=== PATIENT | female | born 1935 | race Caucasian/White ===

== ENCOUNTER → 2016-09-12 | Outpatient (CLI) | payer OTHER, BC ==
[~2016-09-12] MED LIST: ASPI325T39 PO; CALCTAB5 PO; CHOL100010 PO; ESCI10TA17 PO; LISI5TAB3 PO; MULT-190 PO; OMEG10007 PO; POLYSOL4 OPB; VTMB12UNK PO
--- NOTE | 2016-09-12 16:39 | MAMMOGRAPHY REPORT ---
BILATERAL DIGITAL SCREENING MAMMOGRAM WITH CAD: 09/12/2016 CLINICAL HISTORY: Routine screening. TECHNIQUE: Current study was also evaluated with a Computer Aided Detection (CAD) system. Bilatera l CC and MLO views were obtained. COMPARISON: Comparison is made to exams dated: 03/23/2015 mammogram, 03/22/2014 mammogram, 03/20/20 13 mammogram, 03/11/2012 mammogram, 09/10/2011 mammogram, and 03/07/2011 mammogram - [facility]. BREAST COMPOSITION: The tissue of both breasts is heterogeneously dense, which may obscure small ma sses. FINDINGS: No suspicious masses, calcifications, or areas of architectural distortion are noted in e ither breast. There has been no significant interval change compared to prior exams. Asymmetry in t he left medial posterior breast is stable. A cardiac device overlies the medial aspect of the left breast. Bilateral benign vascular calcifications are again noted. IMPRESSION: ACR BI-RADS CATEGORY 2: BENIGN There is no mammographic evidence of malignancy. A 1 year screening mammogram is recommended. The p atient will receive written notification of the results. Approximately 10% of breast cancers are not detected with mammography. A negative mammographic repor t should not delay biopsy if a clinically suggestive mass is present. Mariaelena Dodd M.D. /:09/12/2016 16:33:01 Machine Assembler For Puller Over: Brittnee Aguirre RT(R)(M), [facility] letter sent: Normal 1/2 BI-RADS Code: ACR BI-RADS Category 2: Benign
== END | disposition home or self-care (01) ==
LOC: C.MAMM 09:36
PROVIDERS: ATTEND Internal Medicine
DX: Z12.31 Encounter for screening mammogram for malignant neoplasm of breast (principal)

== ENCOUNTER → 2016-12-10 | Outpatient (CLI) | payer OTHER, BC ==
[2016-12-10 11:18] LABS: BASO % 0.5 %; BASO ABS # 0.03 K/uL (0-0.2); COMPLETE YES; EOS % 5.9 %; IG% 0.2 %; LYMPH % 28.6 %; LYMPH ABS # 1.61 K/uL (1.2-3.4); MEAN CELL VOLUME 96.4 fL (80-100); MEAN CORPUSCULAR HEMOGLOBIN 32.3 pg (25-34); MEAN CORPUSCULAR HGB CONC 33.5 g/dl (32-36); MEAN PLATELET VOLUME 9.7 fL (7.4-10.4); MONO % 11.2 %; NEUT % 53.6 %; PLATELET COUNT 181 K/uL (130-400); RED BLOOD COUNT 3.84 M/uL (4.2-5.4); WHITE BLOOD COUNT 5.63 K/uL (4.8-10.8)
[2016-12-10 11:48] LABS: ALB/GLOB RATIO 1.3 (0.9-2); ALT/SGPT 18 U/L (12-78); AST/SGOT 13 U/L (15-37); BLOOD UREA NITROGEN 16 mg/dl (7-18); BUN/CREATININE RATIO 25.9 (10-20); CARBON DIOXIDE 30 mmol/L (21-32); CHLORIDE 106 mmol/L (98-107); CREATININE 0.63 mg/dl (0.60-1.20); GLUCOSE 94 mg/dl (70-99); POTASSIUM 4.2 mmol/L (3.5-5.1); SODIUM 142 mmol/L (136-145)
[2016-12-10 11:58] LABS: ALKALINE PHOSPHATASE 88 U/L (45-117); CHOLESTEROL 208 mg/dl (0-200); CHOLESTEROL/HDL RATIO 3.9; HDL CHOLESTEROL 53 mg/dl; LDL CHOLESTEROL CALCULATED 132 mg/dl; TRIGLYCERIDES 116 mg/dl (0-150); VERY LOW DENSITY LIPOPROT CALC 23 mg/dl
== END | disposition home or self-care (01) ==
LOC: C.LABBC 08:20
PROVIDERS: ATTEND Internal Medicine
DX: I47.2 Ventricular tachycardia (principal)

== ENCOUNTER → 2017-07-02 | Outpatient (CLI) | payer OTHER, BC ==
--- NOTE | 2017-07-02 10:52 | DIAGNOSTIC IMAGING REPORT ---
HEAD WITHOUT CONTRAST (CT) CLINICAL HISTORY: 82 years-old Female presenting with W19.XXXA Fall in March, accidental, S09.90XA Head trauma. TECHNIQUE: Multidetector CT imaging of the head was performed without the use of intravenous contrast. IV contrast: None. A dose lowering technique was used consistent with the principles of ALARA (as low as reasonably achievable). COMPARISON: 01/26/2013. CT DOSE (mGy.cm): The estimated cumulative dose is 537.48 mGy.cm. FINDINGS: Chain Builder topogram: Unremarkable. Proportional ventricular and sulcal prominence, likely age-related parenchymal volume loss. Periventricular and subcortical white matter hypoattenuation, nonspecific but likely indicative of chronic small vessel ischemic change. Old lacunar infarct may be present in the subinsular white matter bilaterally, unchanged. No mass effect or midline shift. No hemorrhage or acute territorial infarct. No extra-axial fluid collection. Paranasal sinuses and mastoid air cells clear. Calvarium intact. IMPRESSION: 1. Chronic small vessel ischemic change. No acute intracranial abnormality. Electronically signed by: Uziel Moreland M.D. 07/02/2017 10:50 AM Dictated Date/Time: 07/02/2017 10:43 AM
== END | disposition home or self-care (01) ==
LOC: C.CTS 10:31
PROVIDERS: ATTEND Physician Assistant Medical
DX: S09.90XA Unspecified injury of head, initial encounter (principal); W19.XXXA Unspecified fall, initial encounter

== ENCOUNTER 2017-09-02 21:04 | Emergency (ER) | payer OTHER, BC ==
[~2017-09-02] VITALS: Ht 158.8 cm; Wt 64.1 kg
[2017-09-02 21:22] VITALS: TEMP 36.5; Ht 158.8 cm; Wt 64.1 kg
--- NOTE | 2017-09-02 22:31 | EMERGENCY ROOM VISIT NOTE ---
History Report prepared by Adrián: Vargas Espino Under the Supervision of: Dr. Devin Brooke M.D. First contact with patient: 22:35 Chief Complaint: KNEEPAIN Stated Complaint: LEFT KNEE PROBLEM History of Present Illness The patient is a 82 year old female who presents to the Emergency Room with complaints of excruciating worsening posterior left knee pain that began 3 days ago. The patient states that she was walking for 1.5 miles and locked her leg while she was cutting vegetables over the weekend. She states that walking worsens her pain. She states that she takes Aspirin. She denies taking Ibuprofen or Motrin. She normally follows with Dr. Menard. She denies chest pain, SOB, and abdominal pain. Source of History: patient Onset: 3 days ago Position: knee (left) Symptom Intensity: excruciating Timing: worsening Modifying Factors (Worsening): other (walking) Associated Symptoms: No chest pain, No SOB, No abdominal pain Review of Systems See HPI for pertinent positives & negatives. A total of 10 systems reviewed and were otherwise negative. Past Medical & Surgical Medical Problems: (1) Basal cell carcinoma (2) HTN (hypertension) Family History Cancer Diabetes mellitus Heart disease Hypertension Kidney disease Social History Smoking Status: Never Smoker Alcohol Use: occasionally Drug Use: none Marital Status: single Housing Status: lives alone Occupation Status: retired Current/Historical Medications Scheduled Aspirin (Aspirin Ec), 325 MG PO HS Calcium Carbonate-Vitamin D (Calcium + D), 1 TAB PO BID Cholecalciferol (D3 2000), 2,000 UNITS PO QAM Cyanocobalamin (Vitamin B-12), 500 MCG PO DAILY Escitalopram (Lexapro), 10 MG PO DAILY Fish Oil (Comstock-3), 1,200 MG PO DAILY Metoprolol Succinate (Toprol Xl), 37.5 MG PO DAILY Ocuvite Preservision (Ocuvite Preservision), 1 TAB PO BID Polyethylene Glycol-Propylene (Systane), 1 DROP OPB TID Scheduled PRN Triamcinolone Acet (Triamcinolone Acetonide), 1 APPLN TOP BID PRN for AFFECTED AREA Zolpidem Tartrate (Ambien), 5 MG PO HS PRN for Sleep Allergies Coded Allergies: POLLEN (Verified Allergy, Intermediate, ITCHY EYES, SNEEZING, CONGESTION, 09/02/17) Hilliard Nut (Verified Allergy, Unknown, swelling of throat and mouth, ) Physical Exam Vital Signs Date Time Temp Pulse Resp B/P (MAP) Pulse Ox O2 Delivery O2 Flow Rate FiO2 09/03/17 00:42 72 18 142/66 97 Room Air 09/02/17 23:55 72 18 145/69 98 Room Air 09/02/17 21:22 36.5 76 18 177/77 98 Room Air Physical Exam GENERAL: Patient is well appearing and in no acute distress. EYES: No scleral icterus, unremarkable pupils. ENT: Mucous membranes moist, no nasal congestion. NECK: No masses appreciated, no meningismus, trachea is midline. RESPIRATORY: No dyspnea. Clear to auscultation and equal bilaterally. No wheeze , no rhonchi. CARDIOVASCULAR: Regular rate and rhythm. No murmurs, rubs, gallops appreciated. GASTROINTESTINAL: Abdomen soft, nontender, no peritonitis. Bowel sounds positive. No masses appreciated. BACK: No midline tenderness, no CVA tenderness EXTREMITIES: Left effusion with some swelling of posterior knee. No erythema. Minimal pain with ROM. Minimal increased warmth. Normal motion all extremities, no cyanosis, no edema. NEUROLOGIC: Distal NV in tact. Alert and oriented, no acute motor or sensory deficits, no focal weakness, cranial nerves grossly intact. SKIN: No rash, no jaundice, no diaphoresis. Medical Decision & Procedures ER Provider Diagnostic Interpretation: Radiology results and stated below per my review and radiologist interpretation: LEFT KNEE 2 VIEWS CLINICAL HISTORY: Left knee pain and swelling. FINDINGS: AP and crosstable lateral views of the left knee are obtained. No prior studies are available for comparison at the time of dictation. The skeletal structures are osteopenic. No fracture is seen. There is mild to moderate tricompartmental degenerative joint space narrowing, greatest in the medial and patellofemoral compartments. Chondrocalcinosis is present in the medial and lateral compartments. There are small lateral marginal osteophytes. No large joint effusion is identified. Soft tissue edema is seen around the knee. Atherosclerotic calcification is observed in the popliteal artery. IMPRESSION: 1. Soft tissue swelling with no acute bony abnormality identified in the left knee. 2. Osteopenia with degenerative change and chondrocalcinosis as above. Electronically signed by: Jorden Thomas M.D. 09/02/2017 11:07 PM Dictated Date/Time: 09/02/2017 11:06 PM US VENOUS LEFT LOWER EXTREMITY Impression: No evidence of deep vein thrombus. Complex fluid collection within the medical left knee measuring up to 3.6 cm, likely joint effusion. Hematoma is not excluded. Radiologist: Genaro Sandoval MD. Study ready at 23:40 and initial results transmitted at 23:55. ED Course 2235: The patient was evaluated in room C8. A complete history and physical exam was performed. 0010: I checked on the patient and informed her about her left knee effusion. She will follow up with Dr. Mesa's clinic. 0020: Reevaluated the patient. Discussed results and discharge instructions: She verbalized understanding and agreement. The patient is ready for discharge. Medical Decision Differential: Fracture, Dislocation, Cellulitis, Septic Joint, Ligamentous Injury, Effusion, DVT, amongst other pathologies entertained. 82 yr old female arrives for evaluation of left knee pain. Moderate effusion on exam without erythema nor redness nor any pain with ROM. This is not septic joint by exam. Xray with effusion though no fracture. US without DVT though again shows effusion. Distal NV looks good. Has good relationship with Ortho team and will contact them in morning. Reviewed symptoms to monitor for and which to return immediately. Medication Reconcilliation Current Medication List: was personally reviewed by me Blood Pressure Screening Patient's blood pressure: Elevated blood pressure Blood pressure disposition: Elevated BP felt to be situational Impression Primary Impression: Effusion of left knee Scribe Attestation The scribe's documentation has been prepared under my direction and personally reviewed by me in its entirety. I confirm that the note above accurately reflects all work, treatment, procedures, and medical decision making performed by me. Departure Information Dispostion Home / Self-Care Referrals Uziel Ward M.D. (PCP) Richardson Mesa M.D. Patient Instructions ED Effusion Knee, [facility]
--- NOTE | 2017-09-02 23:09 | DIAGNOSTIC IMAGING REPORT ---
LEFT KNEE 2 VIEWS CLINICAL HISTORY: Left knee pain and swelling. FINDINGS: AP and crosstable lateral views of the left knee are obtained. No prior studies are available for comparison at the time of dictation. The skeletal structures are osteopenic. No fracture is seen. There is mild to moderate tricompartmental degenerative joint space narrowing, greatest in the medial and patellofemoral compartments. Chondrocalcinosis is present in the medial and lateral compartments. There are small lateral marginal osteophytes. No large joint effusion is identified. Soft tissue edema is seen around the knee. Atherosclerotic calcification is observed in the popliteal artery. IMPRESSION: 1. Soft tissue swelling with no acute bony abnormality identified in the left knee. 2. Osteopenia with degenerative change and chondrocalcinosis as above. Electronically signed by: Jorden Thomas M.D. 09/02/2017 11:07 PM Dictated Date/Time: 09/02/2017 11:06 PM
[2017-09-03] MEDS ORDERED: METO25TA4 PO (00:02)
[2017-09-03] MEDS ORDERED: TRMCR515 TOP (00:02)
[2017-09-03] MEDS ORDERED: CALC600T9 PO (00:02)
[2017-09-03] MEDS ORDERED: CHOL1TAB79 PO (00:02)
[2017-09-03] MEDS ORDERED: CYAN500T PO (00:02)
[2017-09-03] MEDS ORDERED: ZOLP5TAB PO (00:05)
[2017-09-03 00:42] VITALS: BP 142/66; PULSE 72; O2SAT 97
--- NOTE | 2017-09-03 07:20 | DIAGNOSTIC IMAGING REPORT ---
LEFT LOWER EXTREMITY VENOUS DOPPLER HISTORY: left posterior knee swelling - dvt/bakers? COMPARISON STUDY: None. FINDINGS: There is normal compressibility, flow, and augmentation within the left lower extremity deep venous system. Doppler fluid collection within the popliteal fossa which measures 3.6 x 3.3 x 0.8 cm. This favors a complex popliteal cyst. IMPRESSION: No DVT within the left lower extremity. A 3.6 x 3.3 x 0.8 cm complex fluid collection within the popliteal fossa. This favors a complex popliteal cyst. Electronically signed by: Des Glover M.D. 09/03/2017 7:18 AM Dictated Date/Time: 09/03/2017 7:17 AM
== END 2017-09-03 00:43 | disposition home or self-care (01) ==
LOC: C.EDB 21:05 → C.EDC 09-03 00:43
DX: M25.462 Effusion, left knee (principal); I10 Essential (primary) hypertension; Z85.828 Personal history of other malignant neoplasm of skin; Z79.82 Long term (current) use of aspirin; Z79.899 Other long term (current) drug therapy; Z91.048 Other nonmedicinal substance allergy status; Z91.018 Allergy to other foods

== ENCOUNTER → 2017-09-16 | Outpatient (CLI) | payer OTHER, BC ==
[~2017-09-16] MED LIST changes: +CALC600T9 PO; -CALCTAB5 PO; -CHOL100010 PO; +CHOL1TAB79 PO; +CYAN500T PO; -LISI5TAB3 PO; +METO25TA4 PO; +TRMCR515 TOP; -VTMB12UNK PO; +ZOLP5TAB PO
--- NOTE | 2017-09-17 07:38 | MAMMOGRAPHY REPORT ---
BILATERAL DIGITAL SCREENING MAMMOGRAM TOMOSYNTHESIS WITH CAD: 09/16/2017 CLINICAL HISTORY: Routine screening. TECHNIQUE: Breast tomosynthesis in addition to standard 2D mammography was performed. Current study was also evaluated with a Computer Aided Detection (CAD) system. COMPARISON: Comparison is made to exams dated: 09/12/2016 mammogram, 03/23/2015 mammogram, 03/22/2014 mammogram, 03/20/2013 mammogram, 03/11/2012 mammogram, and 03/07/2011 mammogram - [facility]. BREAST COMPOSITION: The tissue of both breasts is heterogeneously dense, which may obscure small mas ses. FINDINGS: There are mild to moderate vascular calcifications in the breasts. A rectangular metallic recording device projects over the far posterior lower inner left breast. A focal asymmetry in the l ower inner left breast is unchanged dating back to at least 2007, therefore considered benign. No ne w suspicious mass, architectural distortion or cluster of microcalcifications is seen. IMPRESSION: ACR BI-RADS CATEGORY 1: NEGATIVE There is no mammographic evidence of malignancy. A 1 year screening mammogram is recommended. The pa tient will receive written notification of the results. Approximately 10% of breast cancers are not detected with mammography. A negative mammographic report should not delay biopsy if a clinically suggestive mass is present. Karen Sams M.D. ay/:09/16/2017 11:19:26 Computer Customer Support Specialist: Brittnee RUTH)(Berna), [facility] letter sent: Normal 1/2 BI-RADS Code: ACR BI-RADS Category 1: Negative
== END | disposition home or self-care (01) ==
LOC: C.MAMM 09:04
PROVIDERS: ATTEND Internal Medicine
DX: Z12.31 Encounter for screening mammogram for malignant neoplasm of breast (principal)

== ENCOUNTER → 2017-09-17 | Outpatient (CLI) | payer OTHER, BC ==
--- NOTE | 2017-09-17 13:46 | EXERCISE STRESS ECHO ---
*NOTICE TO RECEIVING REPUBLICAN AGENCY This information is strictly Confidential and protected under [place] law. [place] law prohibits you from making any further disclosure of this information unless further disclosure is expressly permitted by the written consent of the person to whom it pertains or is authorized by law. A general authorization for the release of medical or other information is not sufficient for this purpose. Hospital accepts no responsibility if the information is made available to any other person, INCLUDING THE PATIENT. Interpretation Summary * Name: ROSEMARY ZAVALA Study Date: 09/17/2017 10:28 AM BP: 162/80 mmHg * Patient Location: [facility] HR: 65 * : 1935 (M/d/yyyy) Gender: Female Height: 62 in * Age: 82 yrs Ethnicity: CA Weight: 138 lb * Ordering Physician: Maximilian Ortiz * Referring Physician: Maximilian Ortiz * Performed By: Keisha Kaye RCS * * Reason For Study: DYSPNEA ON EXERTION * BSA: 1.6 m2 * -- Conclusions -- * There is borderline concentric left ventricular hypertrophy. * Left ventricular systolic function is normal. * Grade I diastolic dysfunction, (abnormal relaxation pattern). * Mild aortic regurgitation. * There is mild to moderate mitral regurgitation. * Right ventricular systolic pressure is normal. * Compared to an echocardiogram from 05/2014 the does appear to be some mild valvular regurgitation * Abnormal stress echocardiogram with evidence of inducible ischemia involving the anterior wall from base to mid ventricle Procedure Details * ECHOEX, CPT #[id number] * ECHO COLOR FLOW, CPT #[id number] * ECHO DOPPLER, CPT #[id number] Left Ventricular Findings with Stress * Abnormal stress echocardiogram with evidence of inducible ischemia involving the anterior wall from base to mid ventricle Left Ventricle * The left ventricle is normal in size. * There is borderline concentric left ventricular hypertrophy. * Left ventricular systolic function is normal. * Ejection Fraction = 55-60%. * Grade I diastolic dysfunction, (abnormal relaxation pattern). * The left ventricular wall motion is normal at rest. Right Ventricle * The right ventricle is normal in size and function. Atria * The left atrial size is normal. * Right atrial size is normal. Mitral Valve * The mitral valve is grossly normal. * There is mild to moderate mitral regurgitation. * The mitral regurgitant jet is posteriorly directed, which is consistent with anterior leaflet pathology. Tricuspid Valve * The tricuspid valve is not well visualized, but is grossly normal. * There is mild tricuspid regurgitation. * Right ventricular systolic pressure is normal. Aortic Valve * The aortic valve is normal in structure and function. * No hemodynamically significant valvular aortic stenosis. * Mild aortic regurgitation. Pulmonic Valve * The pulmonic valve is not well visualized. Great Vessels * The aortic root is normal size. Pericardium * There is no pericardial effusion. Stress Parameters * Normal sinus rhythm with right bundle-branch block * Stress ECG: No ST changes. No arrhythmias. * The stress portion of this study was personally supervised by the undersigned interpreting physician. * Rest heart rate was '65' BPM. * Rest blood pressure was '162/80' * Maximum heart rate achieved was 126 bpm. * Maximum heart rate was 90 % of maximum age-predicted heart rate. * Maximum blood pressure was '180/80' * Total exercise time was '05:06' * Maximum exercise MET level achieved was '7.00' METS * Maximum treadmill speed was '2.50' miles per hour. * Maximum treadmill elevation was '12.00'% grade. Left Ventricular Findings with Stress * Baseline EKG revealed right bundle branch block There are no significant ST or T-wave changes during exercise or recovery Baseline echocardiogram was normal with normal LV function and wall motion At peak exertion there was poor augmentation of the anterior wall from the base to mid ventricle No symptoms reported Baseline hypertension No arrhythmia MMode 2D Measurements and Calculations IVSd 1.3 cm IVSs 1.4 cm LVIDd 4.0 cm LVIDs 3.3 cm LVPWd 1.2 cm LVPWs 1.8 cm IVS/LVPW 1.1 FS 18.6 % EDV(Teich) 69.9 ml ESV(Teich) 42.6 ml EF(Teich) 39.0 % EDV(cubed) 63.9 ml ESV(cubed) 34.4 ml EF(cubed) 46.1 % % IVS thick 7.2 % % LVPW thick 49.7 % LV mass(C)d 171.4 grams LV mass(C)dI 105.0 grams/m\S\2 LV mass(C)s 189.0 grams LV mass(C)sI 115.8 grams/m\S\2 SV(Teich) 27.3 ml SI(Teich) 16.7 ml/m\S\2 SV(cubed) 29.5 ml SI(cubed) 18.0 ml/m\S\2 Ao root diam 2.6 cm Ao root area 5.2 cm\S\2 LA dimension 3.2 cm LA/Ao 1.3 LVOT diam 2.0 cm LVOT area 3.1 cm\S\2 LVAd ap4 31.2 cm\S\2 LVLd ap4 8.2 cm EDV(MOD-sp4) 97.9 ml EDV(sp4-el) 100.5 ml LVAs ap4 20.3 cm\S\2 LVLs ap4 6.6 cm ESV(MOD-sp4) 51.1 ml ESV(sp4-el) 53.0 ml EF(MOD-sp4) 47.8 % EF(sp4-el) 47.3 % LVAd ap2 36.6 cm\S\2 LVLd ap2 8.9 cm EDV(MOD-sp2) 123.0 ml EDV(sp2-el) 127.5 ml LVAs ap2 26.9 cm\S\2 LVLs ap2 8.1 cm ESV(MOD-sp2) 74.1 ml ESV(sp2-el) 75.3 ml EF(MOD-sp2) 39.7 % EF(sp2-el) 41.0 % LVLd %diff 8.0 % EDV(MOD-bp) 113.3 ml LVLs %diff 19.1 % ESV(MOD-bp) 67.8 ml EF(MOD-bp) 40.2 % SV(MOD-sp4) 46.8 ml SI(MOD-sp4) 28.7 ml/m\S\2 SV(MOD-sp2) 48.9 ml SI(MOD-sp2) 29.9 ml/m\S\2 SV(MOD-bp) 45.5 ml SI(MOD-bp) 27.9 ml/m\S\2 SV(sp4-el) 47.5 ml SI(sp4-el) 29.1 ml/m\S\2 SV(sp2-el) 52.2 ml SI(sp2-el) 32.0 ml/m\S\2 Doppler Measurements and Calculations MV E max jimmy 81.4 cm/sec MV A max jimmy 79.8 cm/sec MV E/A 1.0 MV P1/2t max jimmy 74.2 cm/sec MV P1/2t 78.7 msec MVA(P1/2t) 2.8 cm\S\2 MV dec slope 276.2 cm/sec\S\2 MV dec time 0.15 sec Ao V2 max 115.6 cm/sec Ao max PG 5.3 mmHg Ao max PG (full) 3.6 mmHg RICH(V,A) 1.8 cm\S\2 RICH(V,D) 1.8 cm\S\2 AI max jimmy 282.5 cm/sec AI max PG 31.9 mmHg AI dec slope 189.0 cm/sec\S\2 AI P1/2t 437.8 msec LV V1 max PG 1.7 mmHg LV V1 max 65.2 cm/sec MR max jimmy 627.7 cm/sec MR max PG 157.6 mmHg PA V2 max 82.8 cm/sec PA max PG 2.7 mmHg TR max jimmy 222.2 cm/sec
== END | disposition home or self-care (01) ==
LOC: C.CPL 10:07
PROVIDERS: ATTEND Internal Medicine Cardiovascular Disease
DX: R06.09 Other forms of dyspnea (principal)

== ENCOUNTER → 2017-12-18 | Outpatient (CLI) | payer OTHER, BC ==
[~2017-12-18] MED LIST changes: -TRMCR515 TOP; -ZOLP5TAB PO
[2017-12-18 13:04] LABS: BASO % 0.7 %; BASO ABS # 0.04 K/uL (0-0.2); EOS ABS # 0.24 K/uL (0-0.5); HEMATOCRIT 38.3 % (37-47); HEMOGLOBIN 12.7 g/dL (12.0-16.0); IG# 0.01 K/uL (0.00-0.02); LYMPH % 30.9 %; LYMPH ABS # 1.87 K/uL (1.2-3.4); MEAN CELL VOLUME 97.2 fL (80-100); MEAN CORPUSCULAR HEMOGLOBIN 32.2 pg (25-34); MEAN CORPUSCULAR HGB CONC 33.2 g/dl (32-36); MEAN PLATELET VOLUME 10.4 fL (7.4-10.4); MONO % 8.6 %; MONO ABS # 0.52 K/uL (0.11-0.59); NEUT % 55.6 %; NEUT ABS # 3.38 K/uL (1.4-6.5); PLATELET COUNT 175 K/uL (130-400); RED CELL DISTRIBUTION WIDTH CV 14.1 % (11.5-14.5); RED CELL DISTRIBUTION WIDTH SD 51.1 fL (36.4-46.3); WHITE BLOOD COUNT 6.06 K/uL (4.8-10.8)
[2017-12-18 13:35] LABS: ALBUMIN 3.4 gm/dl (3.4-5.0); ALKALINE PHOSPHATASE 87 U/L (45-117); ALT/SGPT 19 U/L (12-78); AST/SGOT 12 U/L (15-37); BLOOD UREA NITROGEN 15 mg/dl (7-18); CALCIUM 8.1 mg/dl (8.5-10.1); CARBON DIOXIDE 29 mmol/L (21-32); CHOLESTEROL 204 mg/dl (0-200); CREATININE 0.62 mg/dl (0.60-1.20); GLUCOSE 92 mg/dl (70-99); LDL CHOLESTEROL CALCULATED 131 mg/dl; POTASSIUM 4.1 mmol/L (3.5-5.1); SODIUM 138 mmol/L (136-145); TOTAL PROTEIN 6.4 gm/dl (6.4-8.2)
== END | disposition home or self-care (01) ==
LOC: C.LABBC 07:34
PROVIDERS: ATTEND Internal Medicine
DX: I42.9 Cardiomyopathy, unspecified (principal); I10 Essential (primary) hypertension; M85.80 Other specified disorders of bone density and structure, unspecified site; G47.00 Insomnia, unspecified; E78.5 Hyperlipidemia, unspecified; R55 Syncope and collapse; I49.3 Ventricular premature depolarization; H61.20 Impacted cerumen, unspecified ear